=== PATIENT | female | born 1985 | race Two or more races ===

== ENCOUNTER 2017-05-26 09:22 | Emergency (ER) | payer SELFPAY ==
[~2017-05-26] VITALS: Ht 170.2 cm; Wt 61.2 kg
[2017-05-26 09:38] VITALS: BP 114/67
== END 2017-05-26 10:04 | disposition home or self-care (01) ==
LOC: ER 09:28
DX: S01.01XD Laceration without foreign body of scalp, subsequent encounter (principal)
CPT/HCPCS: A4606; Z7502; Z7610